=== PATIENT | female | born 1955 | race Caucasian/White ===

== ENCOUNTER → 2017-06-29 | Outpatient (CLI) | payer BC | LOC: MC.RAD 06-18 10:20 | DX: Z12.31 Encounter for screening mammogram for malignant neoplasm of breast (principal) ==

== ENCOUNTER → 2018-08-03 | Outpatient (CLI) | payer MEDICARE, BC ==
[~2018-08-03] VITALS: Ht 167.6 cm; Wt 116.1 kg
[~2018-08-03] MED LIST: PERCOCET 325 MG1 TA2 PO; PRINZIDE 25 MG-1 TAB PO; TYLENOL 500MG500 MG PO; XANAX .25M0.25 MG/TA PO; ZOCOR 20MG20 MG PO; formula 303 PO
[2018-08-03 10:06] VITALS: BP 148/98; PULSE 92
[2018-08-03 11:15] VITALS: BP 166/97; PULSE 78
--- NOTE | 2018-08-03 11:30 | NUR ---
Pt not in waiting room. Pt returns to holding area.,
--- NOTE | 2018-08-03 12:15 | NUR ---
Multiple attempts to reach pts unsuccessful. Pt calls daughter.
--- NOTE | 2018-08-03 12:25 | NUR ---
pts here. Pt out to truck per wheelchair. Denies pain at this time. Bandaid continues clean dry and intact. Copy of previously gone over discharge instructions given to pt. Pt verbalized understanding of instructions. Pt up and into truck without assistance.
== END ==
LOC: COL.RAD 09:30
DX: M51.26 Other intervertebral disc displacement, lumbar region (principal)
CPT/HCPCS: J3301

== ENCOUNTER → 2019-08-09 | Outpatient (CLI) | payer MEDICARE, BC | LOC: MC.RAD 11:37 | DX: Z12.31 Encounter for screening mammogram for malignant neoplasm of breast (principal) ==

== ENCOUNTER → 2021-05-21 | Outpatient (CLI) | payer MEDICARE, BC | LOC: MC.RAD 11:30 | DX: Z12.31 Encounter for screening mammogram for malignant neoplasm of breast (principal) ==

== ENCOUNTER → 2023-09-01 | Outpatient (CLI) | payer MEDICARE, BC | LOC: MC.RAD 13:21 | DX: Z12.31 Encounter for screening mammogram for malignant neoplasm of breast (principal) ==